=== PATIENT | female | born 1935 | race Hispanic/Latino ===

== ENCOUNTER 2021-01-19 12:54 | Emergency (ER) | payer OTHER, MEDICARE ==
[2021-01-19] MEDS ORDERED: SODIUM CHLORIDE 0.9% 1000ML 1,000 ML IV ONE (13:51)
[2021-01-19] MEDS ORDERED: LORAZEPAM 2 MG/ML 1 ML VIAL ONE (13:54)
[2021-01-19 14:32] LABS: BASOPHILS % (AUTO) 0.5 % (0.0-5.0); EOSINOPHILS % (AUTO) 0.1 % (0.0-8.0); HEMATOCRIT 34.4 % (36-48); LYMPHOCYTES % (AUTO) 12.8 % (21.0-51.0); MEAN CORPUSCULAR HGB CONC 31.4 g/dL (32.0-36.0); MEAN CORPUSCULAR VOLUME 92.2 fL (79-99); MONOCYTES % (AUTO) 5.8 % (3.0-13.0); NEUTROPHILS % (AUTO) 80.5 % (40.0-77.0); PLATELET COUNT (AUTO) 295 K/uL (130-400); RED BLOOD CELL COUNT(AUTO) 3.73 MIL/uL (4.00-5.50); RED CELL DISTRIBUTION WIDTH 14.2 % (11.0-15.5); WHITE BLOOD COUNT (AUTO) 8.7 K/uL (4.8-10.8)
[2021-01-19 14:44] LABS: CREATININE 1.1 mg/dL (0.5-1.5); POTASSIUM 4.3 mmol/L (3.5-5.1)
[2021-01-19 14:50] LABS: ALBUMIN 3.1 g/dL (3.5-5.0); BILIRUBIN,TOTAL 0.8 mg/dL (0.2-1.0); TOTAL PROTEIN, SERUM 7.3 g/dL (6.0-8.3)
[2021-01-19 14:58] LABS: B-TYPE NATRIURETIC PEPTIDE 372 pg/mL (0-100)
[2021-01-19] MEDS ORDERED: IOHEXOL-350 75 ML VIAL IV ONE (15:11)
[2021-01-19] MEDS ORDERED: HALOPERIDOL LACTATE 5 MG/ML VIAL ONE (16:04)
[2021-01-19] MEDS ORDERED: DiphenhydrAMINE HCL 50 MG/ML VIAL ONE (18:03)
[2021-01-19 18:29] LABS: APPEARANCE,URINE Clear (CLEAR); BILIRUBIN,URINE Negative (NEGATIVE); COLOR,URINE Yellow (YELLOW); GLUCOSE, URINE (UA) Negative (NEGATIVE); KETONES,URINE Negative (NEGATIVE); LEUKOCYTE ESTERASE ,URINE Negative (NEGATIVE); NITRATE,URINE Negative (NEGATIVE); OCCULT BLOOD,URINE Negative (NEGATIVE); PH,URINE 7.5 (5.0-8.0); PROTEIN,URINE Negative (NEGATIVE)
== END 2021-01-19 19:27 | disposition home or self-care (01) ==
LOC: EDH 12:54
DX: K80.80 Other cholelithiasis without obstruction (principal); K64.8 Other hemorrhoids; E86.0 Dehydration; I10 Essential (primary) hypertension; Z91.02 Food additives allergy status; Z88.1 Allergy status to other antibiotic agents; Z88.8 Allergy status to other drugs, medicaments and biological substances
CPT/HCPCS: 36415; 74176; 76705; 80053; 81003; 82550; 83605; 83690; 83880; 84484; 85025; 86850; 86900; 86901; 87040 ×2; 87077; 87186; 93005; 96361; 96372; 96374; 96375; 99285; J1200; J1630; J2060; J7030; Q9967